=== PATIENT | female | born 1965 | race Caucasian/White ===

== ENCOUNTER 2021-06-14 15:15 | Observation (INO) | payer MEDICAID ==
--- NOTE | 2021-06-14 15:30 | ED Physician Documentation ---
PD HPI NVD - Stated complaint Stated Complaint: NAUSEA/WEAKNESS - Chief complaint Chief Complaint: Cardiac - History obtained from History obtained from: Patient, Family - History of Present Illness Timing - onset: How many hours ago (about 10 hours ago, at 5:30 this morning, had onset of nausea and vomiting multiple times. No chest pain nor dyspnea. No diarrhea.), Today Timing - duration: Hours Timing - details: Abrupt onset, Now resolved (no feeling of nausea enroute/here.) Associated symptoms: Near syncope / syncope (She has been vomiting for about 9 hours or so and was sitting in a warm bathtub to try to feel better. She got up from that, felt lightheaded and fainted. She did strike her head. Granddaughter called EMS. On route she states she is having less nausea. Vitals are normal on route.). No: Fever, Abdominal pain (She had waves of abdominal cramping prior to vomiting but no consistent abdominal pain.) Contributing factors: No: Sick contact, Bad food, Recent antibiotics, Alcohol use Improved by: No: Eating, Vomiting Worsened by: Eating Similar symptoms before: Diagnosis (Had very similar symptoms a few years ago that had lasted for several hours and when she went to a urgent care, she was found to be in rapid A. fib and cardioverted to normal. Her nausea improved after that. No other history of heart disease or known A. fib episodes.) Recently seen: Not recently seen Review of Systems Constitutional: denies: Fever, Chills Nose: denies: Rhinorrhea / runny nose, Congestion Throat: denies: Sore throat Cardiac: denies: Chest pain / pressure, Palpitations Respiratory: denies: Dyspnea, Cough GI: reports: Nausea, Vomiting (multiple times this morning.). denies: Abdominal Pain, Abdominal Swelling, Constipation, Diarrhea Musculoskeletal: denies: Extremity swelling Neurologic: reports: Syncope (just [employer], has been feeling okay otherwise the past few days with normal activity.). denies: Focal weakness, Numbness PD PAST MEDICAL HISTORY - Past Medical History Cardiovascular: Atrial fibrillation (one episode few years ago) Respiratory: None Neuro: None Endocrine/Autoimmune: None - Present Medications Home Medications: Ambulatory Orders Medication Instructions Recorded Confirmed Aspirin [Chanel] 1 tab DAILY 06/14/21 06/14/21 Atorvastatin [Lipitor] 2 tab DAILY 06/14/21 06/14/21 Metoprolol Tartrate [Lopressor] 1 tab DAILY 06/14/21 06/14/21 - Allergies Allergies/Adverse Reactions: Allergies Allergy/AdvReac Type Severity Reaction Status Date / Time No Known Drug Allergies Allergy Verified 06/14/21 15:31 PD ED PE NORMAL - Vitals Vital signs reviewed: Yes - General General: Alert and oriented X 3, No acute distress, Well developed/nourished - HEENT HEENT: Pharynx benign. No: Atraumatic (local swelling and tenderness right upper occipital area. ), Moist mucous membranes - Neck Neck: Supple, no meningeal sign, No bony TTP, No adenopathy - Cardiac Cardiac: RRR, No murmur, No rub - Respiratory Respiratory: Clear bilaterally - Abdomen Abdomen: Normal bowel sounds, Soft, Non tender, Non distended - Back Back: No CVA TTP - Derm Derm: Normal color, Warm and dry - Extremities Extremities: No edema, No calf tenderness / cord - Neuro Neuro: Alert and oriented X 3, No motor deficit, Normal speech Results - Vitals Vitals: Vital Signs - 24 hr 06/14/21 06/14/21 15:24 15:35 Temperature 37.0 C 36.6 C Heart Rate 107 H 77 Respiratory 24 97 H Rate Blood Pressure 130/100 H 130/100 H O2 Saturation 98 10 L Oxygen O2 Source Room air - EKG (time done) 15:24 Rate: Rate (enter#) (65) Rhythm: NSR [place]: Normal Intervals: Normal NV QRS: Normal Ischemia: Normal ST segments. No: ST elevation c/w ischemia, ST depression - Labs Labs: Laboratory Tests 06/14/21 06/14/21 06/14/21 15:35 15:35 16:20 WBC 12.7 H RBC 4.54 Hgb 14.4 Hct 42.4 MCV 93.4 MCH 31.7 H MCHC 34.0 RDW 12.3 Plt Count 299 MPV 9.6 Neut # (Auto) 10.4 H Lymph # (Auto) 1.9 [place] # (Auto) 0.3 Eos # (Auto) 0.0 Baso # (Auto) 0.1 Absolute Nucleated RBC 0.00 Nucleated RBC % 0.0 Sodium 142 Potassium 3.5 Chloride 107 Carbon Dioxide 25 Anion Gap 10.0 BUN 11 Creatinine 0.8 Estimated GFR (MDRD) 74 L Glucose 118 H Calcium 9.1 Magnesium 1.9 Total Bilirubin 0.7 AST 20 ALT 13 Alkaline Phosphatase 75 Troponin I High Sens 72.6 H* Total Protein 7.1 Albumin 4.1 Globulin 3.0 Albumin/Globulin Ratio 1.4 Lipase 28 06/14/21 16:48 WBC RBC Hgb Hct MCV MCH MCHC RDW Plt Count MPV Neut # (Auto) Lymph # (Auto) [place] # (Auto) Eos # (Auto) Baso # (Auto) Absolute Nucleated RBC Nucleated RBC % Sodium Potassium Chloride Carbon Dioxide Anion Gap BUN Creatinine Estimated GFR (MDRD) Glucose Calcium Magnesium Total Bilirubin AST ALT Alkaline Phosphatase Troponin I High Sens 78.8 H* Total Protein Albumin Globulin Albumin/Globulin Ratio Lipase - Rads (name of study) head CT Radiology: Prelim report reviewed (no acute findings; no ICH.), See rad report chest xray Radiology: Prelim report reviewed (no acute process), See rad report PD MEDICAL DECISION MAKING - ED course Complexity details: reviewed results (Initial troponin is elevated at 72. We will recheck it at 1 hour. Consideration would be hypoperfusion with the syncopal episode and dehydration. Consider atrial fibrillation as the cause of her nausea and vomiting earlier and some demand ischemia. EKG is normal and no chest pain. less likely AMI. ), re-evaluated patient (feeling well with IV fluids and antiemetics. Taking sips water okay. ), considered differential ( Abrupt onset nausea and vomiting multiple times through the morning. No chest pain or abdominal pain per se except cramping abdomen at times. No diarrhea. Had postural syncope just prior to presentation. Small head contusion. No nausea or vomiting on route and feels improved here though thirsty.), d/w patient ED course: The elevation of the troponin into the indeterminate range needs to be better evaluated with sequential troponins to distinguish some demand ischemia versus more concerning. Watching her rhythm on telemetry is reasonable to as her prior episodes of the symptoms had been with a fib. At this point she appears well and does not have any abdominal and or chest pain. EKG was normal. I talked with the hospitalist to was in concurrence of having the patient on telemetry with sequential troponin testing and watching of the rhythm to better assess. Departure - Departure Disposition: ED Place in Observation Clinical Impression: Dehydration, Postural syncope, Elevated troponin Nausea and vomiting Qualifiers: Vomiting type: unspecified Vomiting Intractability: non-intractable Qualified Code(s): R11.2 - Nausea with vomiting, unspecified Head contusion Qualifiers: Encounter type: initial encounter Contusion of head detail: scalp Qualified Code(s): S00.03XA - Contusion of scalp, initial encounter Condition: Stable Record reviewed to determine appropriate education?: Yes
[2021-06-14 15:43] LABS: BASOPHILS # (AUTO) 0.1 10^3/uL (0.0-0.1); BASOPHILS % (AUTO) 0.4 %; HCT - HEMATOCRIT 42.4 % (37.0-47.0); HGB - HEMOGLOBIN 14.4 g/dL (12.0-16.0); LYMPHOCYTES # (AUTO) 1.9 10^3/uL (1.5-3.5); LYMPHOCYTES % (AUTO) 14.6 %; MEAN CORPUSCULAR HEMOGLOBIN 31.7 pg (27.0-31.0); MEAN CORPUSCULAR VOLUME 93.4 fL (81.0-99.0); MEAN PLATELET VOLUME 9.6 fL (7.9-10.8); MONOCYTES # (AUTO) 0.3 10^3/uL (0.0-1.0); MONOCYTES % (AUTO) 2.7 %; NEUTROPHILS # (AUTO) 10.4 10^3/uL (1.5-6.6); NEUTROPHILS % (AUTO) 81.6 %; PLT - PLATELET COUNT 299 10^3/uL (130-450); RED BLOOD COUNT 4.54 10^6/uL (4.20-5.40); RED CELL DISTRIBUTION WIDTH 12.3 % (12.0-15.0); WHITE BLOOD COUNT 12.7 x10^3/uL (4.8-10.8)
[2021-06-14] MEDS ORDERED: ONDANSETRON 4 MG/2 ML VIAL IVP STA (15:43)
[2021-06-14] MEDS ORDERED: SODIUM CHLORIDE 0.9% 1,000 ML IV STA ×2 (15:43→16:51)
--- NOTE | 2021-06-14 15:54 | XRAY Report ---
PROCEDURE: Chest 1 View X-Ray INDICATIONS: Chest pain TECHNIQUE: One view of the chest was acquired. COMPARISON: None FINDINGS: Surgical changes and devices: None. Lungs and pleura: No pleural effusions or pneumothorax. Lungs are clear. Mediastinum: Mediastinal contours appear normal. Heart size is normal. Bones and chest wall: No suspicious bony lesions. Overlying soft tissues appear unremarkable. IMPRESSION: No acute pulmonary process. Reviewed by: Fanny Jones MD on 06/14/2021 3:53 PM PDT Approved by: Fanny Jones MD on 06/14/2021 3:53 PM PDT Station ID: [id number]
[2021-06-14] MEDS ORDERED: ASPIRIN CHEW 81 MG TABLET PO STA (16:16)
--- NOTE | 2021-06-14 16:23 | CT Report ---
PROCEDURE: HEAD WO INDICATIONS: syncope and struck head TECHNIQUE: Noncontrast 4.5 mm thick angled axial sections acquired from the foramen magnum to the vertex. For r adiation dose reduction, the following was used: automated exposure control, adjustment of mA and/or kV according to patient size. COMPARISON: None. FINDINGS: Image quality: Excellent. CSF spaces: Basal cisterns are patent. No extra-axial fluid collections. Ventricles are normal in size and shape. Brain: No midline shift. No intracranial masses or hemorrhage. Oropeza-white matter interface is norm al. Skull and face: Calvarium and visualized facial bones are intact, without suspicious lesions. Sinuses: Visualized sinuses and mastoids are clear. IMPRESSION: 1. No acute intracranial process. Reviewed by: Fanny Jones MD on 06/14/2021 4:22 PM PDT Approved by: Fanny Jones MD on 06/14/2021 4:22 PM PDT Station ID: [id number]
[2021-06-14 16:40] LABS: ALBUMIN 4.1 g/dL (3.2-5.5); ALBUMIN/GLOBULIN RATIO 1.4 (1.0-2.2); BILIRUBIN,TOTAL 0.7 mg/dL (0.2-1.0); CALCIUM 9.1 mg/dL (8.5-10.3); CREATININE 0.8 mg/dL (0.4-1.0); MAGNESIUM 1.9 mg/dL (1.7-2.8); POTASSIUM 3.5 mmol/L (3.5-5.0); TOTAL PROTEIN 7.1 g/dL (6.7-8.2)
[2021-06-14] MEDS ORDERED: SODIUM CHLORIDE FLUSH 0.9% 10 ML SYRINGE IVP PRN (17:38)
[2021-06-14] MEDS ORDERED: ONDANSETRON ODT 4 MG TABLET TL PRN (17:38)
[2021-06-14] MEDS ORDERED: ACETAMINOPHEN 325 MG TABLET PO PRN (17:38)
[2021-06-14] MEDS ORDERED: PROMETHAZINE 25 MG/1 ML VIAL IM PRN (17:38)
[2021-06-14] MEDS ORDERED: DROPERIDOL 5 MG/2 ML VIAL IVP STA (17:41)
--- NOTE | 2021-06-14 18:01 | HISTORY & PHYSICAL EXAMINATION ---
Chief Complaint - Chief Complaint Chief Complaint: Nausea and vomiting History of Present Illness - Admitted From Admitted From:: Emergency department via home - History Obtained From Records Reviewed: ED records History obtained from: Patient and Dr. Jara Exam Limitations: None - History of Present Illness HPI Comment/Other: Patient is a 56-year-old female with a known history of atrial fibrillation status post ablation, hypertension, hyperlipidemia, presents to the ED with a syncopal event preceded by nausea and vomiting that started about 530 this morning. Patient states she had had this nausea and vomiting throughout the morning with multiple episodes of emesis. She decided to take a warm bath to see if that would help her feel better, and when she got up from the bed she felt lightheaded and fainted. She had a minor headContusion, and her granddaughter called EMS. In route she started to feel better and by the time she arrived to the emergency department her symptoms were minor. She was alert, oriented, without chest pain, shortness of breath, neurological symptoms, lightheadedness, or feeling faint. In the ER her work-up was relatively benign with fairly normal labs and patient was found to be in sinus rhythm but her troponin high-sensitivity was mildly elevated at 72 and repeated an hour later at 78. Despite otherwise negative work-up given the elevated cardiac enzymes it was felt that patient would warrant a overnight observation on telemetry monitoring with serial cardiac enzyme testing and possible further syncope work-up. History - Past Medical History Cardiovascular: reports: Atrial fibrillation (one episode few years ago) Respiratory: reports: None Neuro: reports: None Endocrine/Autoimmune: reports: None - Past Surgical History /MANAGER OF MEDICAL: reports: Tubal ligation - Family & Social History Family History Comment/Other: Family history of cancer on the mother side, mother of multiple myeloma. Father has had history of cardiac disease Living arrangement: At home Living Situation: With family - Substance History Use: Uses substance without health or social issues: Tobacco, Cannabis (Smokes cannabis about twice a week) Tobacco Details: Cigarettes (Has been cutting down smoking is down to 4 cigarettes a day) - POLST Patient has POLST: No POLST Status: Full Code Meds/Allgy - Home Medications Home Medications: Ambulatory Orders Medication Instructions Recorded Confirmed Aspirin [Chanel] 1 tab DAILY 06/14/21 06/14/21 Atorvastatin [Lipitor] 2 tab DAILY 06/14/21 06/14/21 Metoprolol Tartrate [Lopressor] 1 tab DAILY 06/14/21 06/14/21 - Allergies Allergies/Adverse Reactions: Allergies Allergy/AdvReac Type Severity Reaction Status Date / Time No Known Drug Allergies Allergy Verified 06/14/21 15:31 Review of Systems - Constitutional Constitutional: reports: Fatigue. denies: Fever, Chills - Cardiovascular Cariovascular: denies: Irregular heart rate, Palpitations, Chest pain - Respiratory Respiratory: denies: Sputum production, Wheezing - Gastrointestinal Gastrointestinal: denies: Diarrhea, Change in bowel habits - Neurological Neurological: reports: General weakness. denies: Focal weakness, Headache Prior Level of Functionality: Fully independent and ambulatory Exam - Vital Signs Reviewed Vital Signs: Yes Vital Signs: Vital Signs x48h Temp Pulse Resp BP Pulse Ox 06/14/21 17:37 36.9 C 88 16 123/84 H 98 06/14/21 15:35 36.6 C 77 97 H 130/100 H 10 L 06/14/21 15:24 37.0 C 107 H 24 130/100 H 98 - Physical Exam General Appearance: positive: No acute distress Eyes Bilateral: positive: Normal inspection ENT: positive: ENT inspection nml Neck: positive: Nml inspection Respiratory: positive: Chest non-tender Cardiovascular: positive: Regular rate & rhythm, No murmur, No gallop. negative: Irregularly irregular Peripheral Pulses: positive: 2+ Abdomen: positive: Non-tender, No organomegaly, Nml bowel sounds, No distention Skin: positive: Color nml, No rash, Warm Extremities: positive: Non-tender, Nml appearance Neurologic/Psychiatric: positive: Oriented x3 Sepsis Event Note (H) - Evaluation Current Stage of Sepsis: Ruled out Conclusion/Plan - Problem List (1) Elevated troponin Conclusion/Plan: Likely demand ischemia in the setting of dehydration secondary to nausea and vomiting Given intermediate range, does warrant overnight observation on telemetry with repeat labs We will check every 6 hours x2 If otherwise asymptomatic and troponin not increasing, can likely discharge home tomorrow with outpatient cardiology work-up (2) Postural syncope Conclusion/Plan: Syncopal episode likely explained by nausea vomiting and dehydration Given overnight observation admission, will check a carotid ultrasound Echocardiogram when available until Thursday, can likely have this outpatient (3) Nausea and vomiting Conclusion/Plan: She is uncertain We will check a UA to rule out UTI NS at 150 an hour overnight Monitor urine output Monitor blood pressures Qualifiers: Vomiting type: unspecified Vomiting Intractability: non-intractable Qual ified Code(s): R11.2 - Nausea with vomiting, unspecified (4) Head contusion Conclusion/Plan: Head contusion without concussion Head CT is normal Qualifiers: Encounter type: initial encounter Contusion of head detail: scalp Qualified Code(s): S00.03XA - Contusion of scalp, initial encounter (5) History of atrial fibrillation Conclusion/Plan: Status post ablation Currently sinus rhythm Monitor telemetry overnight Given syncopal event, hold metoprolol for now, if develops tachycardia or A. fib with RVR, will reinitiate beta-allie - Lab Results Lab results reviewed: Yes Fish Bones: 06/14/21 15:35 06/14/21 16:20 - Diagnostic Imaging Results Diagnostic Imaging Results: positive: Final report reviewed - EKG Results EKG Interpreted Independently: Yes EKG Comparison: No prior EKG Core Measures - Anticipated LOS I expect patient to be DC'd or transferred within 96 hours.: Yes - DVT/VTE - Prophylaxis VTE/DVT Device ordered at admit?: Yes - AMI - Statin at Admit Aspirin Prescribed on Admit: Yes
[2021-06-14 18:11] LABS: BILIRUBIN,URINE NEGATIVE (NEGATIVE); GLUCOSE, URINE (UA) NEGATIVE (NEGATIVE); KETONES,URINE (UA) NEGATIVE (NEGATIVE); LEUKOCYTE ESTERASE, URINE NEGATIVE (NEGATIVE); NITRITE,URINE NEGATIVE (NEGATIVE); OCCULT BLOOD,URINE TRACE-INTA (NEGATIVE); PROTEIN,URINE NEGATIVE (NEGATIVE); UROBILINOGEN,URINE 0.2 (NORMAL) E.U./dL (NORMAL)
[2021-06-14 18:19] LABS: BACTERIA,URINE None Seen /HPF (None Seen); CLARITY,URINE CLEAR (CLEAR); RBC,URINE 0-5 /HPF (0-5); SQUAMOUS EPITHELIAL CELL,UR RARE Squamous (<= Few); WBC,URINE 0-3 /HPF (0-5)
[2021-06-14 18:57] LABS: B. PARAPERTUSSIS- RESP PCR PAN NOT DETECTED; B. PERTUSSIS- RESP PCR PANEL NOT DETECTED; C. PNEUMONIAE- RESP PCR PANEL NOT DETECTED; CORONAVIRUS 229E-RESP PCR NOT DETECTED; CORONAVIRUS HKU1-RESP PCR NOT DETECTED; CORONAVIRUS NL63-RESP PCR NOT DETECTED; CORONAVIRUS OC43-RESP PCR NOT DETECTED; HUMAN METAPNEUMOVIRUS NOT DETECTED; INFLUENZA A- RESP PCR PANEL NOT DETECTED; INFLUENZA B - RESP PCR PANEL NOT DETECTED; M. PNEUMONIAE- RESP PCR PANEL NOT DETECTED; PARAINFLUENZA VIRUS 1 NOT DETECTED; PARAINFLUENZA VIRUS 2 NOT DETECTED; PARAINFLUENZA VIRUS 3 NOT DETECTED; PARAINFLUENZA VIRUS 4 NOT DETECTED; RHINOVIRUS/ENTEROVIRUS NOT DETECTED; RSV- RESP PCR PANEL NOT DETECTED; SARS-CoV-2 -RESP PCR PANEL NOT DETECTED
[2021-06-14] MEDS: SODIUM CHLORIDE 0.9% 1,000 ML IV SCH (19:25)
[2021-06-14] MEDS ORDERED: ATORVASTATIN 40 MG TABLET PO SCH (21:00)
[2021-06-15] MEDS: SODIUM CHLORIDE FLUSH 0.9% 10 ML SYRINGE IVP SCH ×2 (00:28→08:09)
[2021-06-15] MEDS: SODIUM CHLORIDE 0.9% 1,000 ML IV SCH (04:41)
[2021-06-15 06:23] LABS: CHOL/HDL RATIO 3.4 (<4.4); CHOLESTEROL 133 mg/dL; HDL CHOLESTEROL 39 mg/dL; LDL CHOLESTEROL,CALCULATED 71 mg/dL; LDL/HDL RATIO 1.8 (<4.4); TRIGLYCERIDES 114 mg/dL; VLDL CHOLESTEROL 23 mg/dL
[2021-06-15 08:04] LABS: ESTIMATED AVERAGE GLUCOSE 114 mg/dL (70-100); HEMOGLOBIN A1c% 5.6 % (4.27-6.07)
[2021-06-15 08:09] LABS: HCT - HEMATOCRIT 37.6 % (37.0-47.0); HGB - HEMOGLOBIN 12.4 g/dL (12.0-16.0); MEAN CORPUSCULAR HEMOGLOBIN 31.6 pg (27.0-31.0); MEAN CORPUSCULAR VOLUME 95.9 fL (81.0-99.0); MEAN PLATELET VOLUME 9.5 fL (7.9-10.8); RED BLOOD COUNT 3.92 10^6/uL (4.20-5.40); RED CELL DISTRIBUTION WIDTH 12.7 % (12.0-15.0); WHITE BLOOD COUNT 15.2 x10^3/uL (4.8-10.8)
[2021-06-15 08:18] LABS: CALCIUM 8.6 mg/dL (8.5-10.3); CREATININE 0.9 mg/dL (0.4-1.0); POTASSIUM 3.2 mmol/L (3.5-5.0)
[2021-06-15] MEDS ORDERED: ASPIRIN 325 MG TABLET PO SCH (09:00)
--- NOTE | 2021-06-15 09:10 | Ultrasound Report ---
PROCEDURE: Carotid Doppler Complete INDICATIONS: Syncope TECHNIQUE: Color and pulse Doppler interrogation was performed of both carotid systems, with image documentation and velocity measurements. COMPARISON: None. FINDINGS: Right side: Brachial blood pressure: Not accessible. Common carotid artery peak systolic velocity: 109 cm/sec. Internal carotid artery peak systolic velocity: 81 cm/sec. Internal carotid artery end diastolic velocity: 21 cm/sec. External carotid artery peak systolic velocity: 197 cm/sec. ICA/CCA peak systolic ratio: 0.73 . Oropeza scale imaging description: Minimal calcific atherosclerosis . There appears be mild intimal thi ckening. Percent internal carotid artery stenosis: Less than 50% . Vertebral artery: Flow direction is antegrade. Left side: Brachial blood pressure: 109/64 mm Hg. Common carotid artery peak systolic velocity: 27 cm/sec. Internal carotid artery peak systolic velocity: 81 cm/sec. Internal carotid artery end diastolic velocity: 26 cm/sec. External carotid artery peak systolic velocity: 88 cm/sec. ICA/CCA peak systolic ratio: 0.83 . Oropeza scale imaging description: Minimal calcific atherosclerosis . There appears be mild intimal thi ckening. Percent internal carotid artery stenosis: Less than 50% . Vertebral artery: Flow direction is antegrade. IMPRESSION: Less than 50% stenosis of the internal carotid arteries. The estimate of stenosis included in the report of the imaging study was calculated using the NASCET method Note: No significant discrepancy in the preliminary report. Reviewed by: Paxton Barrera on 06/15/2021 8:09 AM MEERA Approved by: Pxaton Barrera on 06/15/2021 8:09 AM MEERA Station ID: [id number]
--- NOTE | 2021-06-15 10:23 | Discharge Plan ---
Discharge Plan Problem Reviewed?: Yes Disposition: Home, Self Care Condition: Stable Diet: Cardiac Activity Restrictions: No Restrictions Shower Restrictions: No Driving Restrictions: No Instruction Topics: Cardiac Biomarkers Blood, Exercise Stress Test, Syncope Causes Plan of Treatment: You were admitted because of your passing out episode and the testing that that prompted, along with the finding of a abnormal blood test called troponin, which was somewhat elevated at the time you were admitted. The abnormally high troponin level can sometimes indicate a heart attack or some other strain to the heart. This is usually evaluated by repeating the test several times every few hours over a period of time. In your case, the blood test was mildly abnormal at 72 when you were admitted, and it eventually increased up to 120, then began to decrease from there. This can sometimes suggest a heart attack however in your case because you had no chest pain or other symptoms typical of a heart attack, and also because your EKG was entirely normal and was repeated the morning after you were admitted, it is also more likely that it was elevated due to your being dehydrated from the nausea and vomiting rather than from a true heart attack. Having said that, we cannot be certain of this and because of that I am strongly encouraging you to follow-up with your pediatric speech therapist as soon as possible so that you can undergo a stress test to determine your risk for future heart attacks. Your pediatric speech therapist will determine what to do next. You should also have an echocardiogram if you have not had 1 of these recently. Since you are traveling out of [facility] to [place], please be mindful of any symptoms of concern such as chest pain, shortness of breath, dizziness, lightheadedness, and seek medical attention to ensure that you are safe to travel. No Smoking: If you smoke, Please STOP! Call for help. Follow-up with: Provider,Other [Primary Care Provider] -
[2021-06-15 11:05] VITALS: BP 114/74
--- NOTE | 2021-06-15 13:23 | DISCHARGE SUMMARY ---
Discharge Summary Admit Date: 06/14/21 Discharge Date: 06/15/21 Discharging Provider: Brandan Matthews MD Primary Care Provider: [id number] Code Status: Attempt Resuscitation Condition at Discharge: Stable Discharge Disposition: 01 Home, Self Care - DIAGNOSES Admission Diagnoses: Elevated troponin Postural syncope Nausea and vomiting Head contusion History of atrial fibrillation Discharge Diagnoses with Status of Each Condition: Elevated troponin - Stable Postural syncope - Resolved Nausea and vomiting - Resolved Head contusion - Improved History of atrial fibrillationstable - HPI History of Present Illness: Patient is a 56-year-old female with a known history of atrial fibrillation st atus post ablation, hypertension, hyperlipidemia, presents to the ED with a syncopal event preceded by nausea and vomiting that started about 530 this morning. Patient states she had had this nausea and vomiting throughout the morning with multiple episodes of emesis. She decided to take a warm bath to see if that would help her feel better, and when she got up from the bed she felt lightheaded and fainted. She had a minor headContusion, and her granddaughter called EMS. In route she started to feel better and by the time she arrived to the emergency department her symptoms were minor. She was alert, oriented, without chest pain, shortness of breath, neurological symptoms, lightheadedness, or feeling faint. In the ER her work-up was relatively benign with fairly normal labs and patient was found to be in sinus rhythm but her troponin high-sensitivity was mildly elevated at 72 and repeated an hour later at 78. Despite otherwise negative work-up given the elevated cardiac enzymes it was felt that patient would warrant a overnight observation on telemetry monitoring with serial cardiac enzyme testing and possible further syncope work-up. - HOSPITAL COURSE Hospital Course: Patient was admitted partly due to syncope with appropriate work-up but also due to elevated High-sensitivity troponin of 72 On admission. Serial cardiac enzymes were obtained and the evening after admission the troponin peakedAt 120.6. This then trended down to 81.8 by the following morning. At no point during the hospital stay or prior to on admission that the patient never complained of chest pain. She also had no shortness of breath or other typical anginal symptoms. Initial EKG showed no significant T wave or ST segment abnormalities, and the EKG was repeated the morning after admission and was entirely normal. Carotid duplex was performed which showed no evidence of carotid artery stenosis. Echocardiogram was not available due to staffing over the weekend when the patient was admitted. Given a relatively negative work-up with the exception of the elevated troponin it was postulated that this is unlikely to be evidence of acute coronary syndrome since she had no symptoms but rather likely a supply demand mismatch given the nausea vomiting and subsequent dehydration. However, the patient was counseled on this and offered to keep the patient over the weekend in order to have a cardiac stress test and echocardiogram versus discharge over the weekend with outpatient follow-up. Given that the patient does have a plan manager in her home [facility], and that she was asymptomatic and clinically stable, it was felt appropriate on her wishes to discharge and made recommendations for outpatient follow-up. It is suggested that she have an outpatient stress test and echocardiogram and further management to follow pending those results. In the meantime she is encouraged to continue taking her aspirin and return to ER precautions were reviewed. - ALLERGIES Allergies/Adverse Reactions: Allergies Allergy/AdvReac Type Severity Reaction Status Date / Time No Known Drug Allergies Allergy Verified 06/14/21 15:31 - MEDICATIONS Home Medications: Ambulatory Orders Medication Instructions Recorded Confirmed Aspirin [Chanel] 1 tab PO DAILY 06/14/21 06/15/21 Atorvastatin [Lipitor] 40 mg PO QPM 06/14/21 06/15/21 Metoprolol Succinate [Toprol Xl] 25 mg PO DAILY 06/15/21 06/15/21 - PHYSICAL EXAM AT DISCHARGE General Appearance: positive: No acute distress, Alert Eyes Bilateral: positive: Normal inspection, PERRL, EOMI ENT: positive: ENT inspection nml, Pharynx nml Neck: positive: Nml inspection, Thyroid nml, No JVD Respiratory: positive: Chest non-tender, No respiratory distress, Breath sounds nml Cardiovascular: positive: Regular rate & rhythm, No murmur, No gallop Abdomen: positive: Non-tender, No organomegaly, Nml bowel sounds, No distention Back: positive: Nml inspection Skin: positive: Color nml, No rash, Warm Extremities: positive: Non-tender, Full ROM Neurologic/Psychiatric: positive: Oriented x3, CN's nml (2-12), Motor nml, Sensation nml - LABS Result Diagrams: 06/15/21 08:03 06/15/21 08:03 - DIAGNOSTIC IMAGING Diagnostic Imaging Results: Final report reviewed - SEPSIS Current Stage of Sepsis: Ruled out - FOLLOW UP Follow Up: Follow-up with PCP and cardiology is recommended - TIME SPENT Time Spent in Discharge (Minutes): 38
== END 2021-06-15 12:01 | disposition home or self-care (01) ==
LOC: ED 15:15 → MS2 17:38
PROVIDERS: ADMIT Family Medicine Sports Medicine; ATTEND Family Medicine Sports Medicine
DX: R77.8 Other specified abnormalities of plasma proteins (principal); R55 Syncope and collapse; S00.03XA Contusion of scalp, initial encounter; W18.30XA Fall on same level, unspecified, initial encounter; Y92.9 Unspecified place or not applicable; E86.0 Dehydration; R11.2 Nausea with vomiting, unspecified; Z86.79 Personal history of other diseases of the circulatory system; Z20.822 Contact with and (suspected) exposure to COVID-19; I10 Essential (primary) hypertension; E78.5 Hyperlipidemia, unspecified; F17.210 Nicotine dependence, cigarettes, uncomplicated
CPT/HCPCS: 0202U; 36415; 70450; 71045; 80048; 80053; 80061; 81001; 83036; 83690; 83735; 84484; 85025; 85027; 93005; 93880; 96361; 96374; 96375; 99284; 99285; A9270; G0378; Q0162; 83721; 87086